=== PATIENT | female | born 1975 | race Hispanic/Latino ===

== ENCOUNTER 2018-05-21 16:53 | Inpatient (IN) | payer BC, OTHER ==
[~2018-05-21] VITALS: Ht 157.5 cm; Wt 95.1 kg
[2018-05-21 17:21] LABS: APPEARANCE,URINE Cloudy (CLEAR); BILIRUBIN,URINE Negative (NEGATIVE); COLOR,URINE Yellow (YELLOW); GLUCOSE, URINE (UA) Negative (NEGATIVE); KETONES,URINE Negative (NEGATIVE); LEUKOCYTE ESTERASE ,URINE Trace (NEGATIVE); NITRATE,URINE Negative (NEGATIVE); OCCULT BLOOD,URINE Large (NEGATIVE); PH,URINE 6.5 (5.0-8.0); PROTEIN,URINE Trace (NEGATIVE)
[2018-05-21] MEDS ORDERED: LACTATED RINGERS 1000ML 2,000 ML IV ONE (17:29)
[2018-05-21 17:30] LABS: HCG,QUAL RESULT NEGATIVE (NEGATIVE)
[2018-05-21 17:41] LABS: RBC,URINE >100 /HPF (0-1)
[2018-05-21 17:42] LABS: BACTERIA,URINE Few /HPF (None Seen); YEAST,URINE BUDDING Rare /HPF (None Seen)
[2018-05-21] MEDS ORDERED: ONDANSETRON HCL 4 MG/2 ML VIAL ONE (17:44)
[2018-05-21] MEDS ORDERED: MORPHINE SULFATE 4 MG/1ML SYG ONE (17:44)
[2018-05-21 17:45] LABS: BASOPHILS % (AUTO) 0.3 % (0.0-5.0); EOSINOPHILS % (AUTO) 0.7 % (0.0-8.0); HEMATOCRIT 36.8 % (36-48); LYMPHOCYTES % (AUTO) 12.9 % (21.0-51.0); MEAN CORPUSCULAR HEMOGLOBIN 25.2 pg (27.0-33.0); MEAN CORPUSCULAR HGB CONC 32.8 g/dL (32.0-36.0); MEAN CORPUSCULAR VOLUME 76.9 fL (79-99); MONOCYTES % (AUTO) 4.8 % (3.0-13.0); NEUTROPHILS % (AUTO) 81.3 % (40.0-77.0); PLATELET COUNT (AUTO) 257 K/uL (130-400); RED BLOOD CELL COUNT(AUTO) 4.78 MIL/uL (4.00-5.50); WHITE BLOOD COUNT (AUTO) 11.3 K/uL (4.8-10.8)
[2018-05-21 17:52] LABS: CREATININE 0.9 mg/dL (0.5-1.5); POTASSIUM 3.8 mmol/L (3.5-5.1)
[2018-05-21] MEDS ORDERED: KETOROLAC TROMETHAMINE 30MG/ML ONE (17:52)
[2018-05-21 17:56] LABS: ALBUMIN 3.5 g/dL (3.5-5.0); BILIRUBIN,TOTAL 0.2 mg/dL (0.2-1.0); TOTAL PROTEIN, SERUM 7.6 g/dL (6.0-8.3)
[2018-05-21 20:55] VITALS: BP 136/58
[2018-05-21] MEDS ORDERED: CETI10CA5 PO (21:56)
[2018-05-21] MEDS: SODIUM CHLORIDE 0.9% 1000ML 1,000 ML IV SCH (23:41)
[2018-05-21 23:52] VITALS: BP 114/63
[2018-05-22] MEDS: KETOROLAC TROMETHAMINE 30MG/ML IV PRN ×3 (01:57→21:53)
[2018-05-22 03:50] VITALS: BP 130/70
[2018-05-22] MEDS ORDERED: LEVOFLOXACIN 500 MG/D5W 100 ML 100 ML IV SCH (07:15)
[2018-05-22 07:53] VITALS: BP 123/61
[2018-05-22] MEDS: LEVOFLOXACIN 500 MG/D5W 100 ML 100 ML IV SCH (08:51)
[2018-05-22] MEDS: SODIUM CHLORIDE 0.9% 1000ML 1,000 ML IV SCH ×3 (08:51→20:20)
[2018-05-22] MEDS: FAMOTIDINE/PF 20 MG/2 ML VIAL IV SCH ×2 (08:53→20:20)
[2018-05-22 11:51] VITALS: BP 125/67
[2018-05-22] MEDS: MORPHINE SULFATE 2 MG/ML 1ML SYG IV PRN (13:08)
[2018-05-22] MEDS: TAMSULOSIN HCL 0.4 MG CAP.ER.24H PO SCH (15:59)
[2018-05-22 16:03] VITALS: BP 139/72
[2018-05-22 19:22] VITALS: BP 134/59
[2018-05-23] VITALS (18 sets, daily range): BP systolic 116–150; BP diastolic 54–85
[2018-05-23] MEDS: MORPHINE SULFATE 2 MG/ML 1ML SYG IV PRN
[2018-05-23] MEDS: SODIUM CHLORIDE 0.9% 1000ML 1,000 ML IV SCH ×2 (05:59→18:34)
[2018-05-23] MEDS: LEVOFLOXACIN 500 MG/D5W 100 ML 100 ML IV SCH (07:53)
[2018-05-23] MEDS: FAMOTIDINE/PF 20 MG/2 ML VIAL IV SCH ×2 (07:53→21:15)
[2018-05-23] MEDS: TAMSULOSIN HCL 0.4 MG CAP.ER.24H PO SCH (07:53)
[2018-05-23] MEDS: KETOROLAC TROMETHAMINE 30MG/ML IV PRN ×3 (07:55→21:16)
[2018-05-23] MEDS ORDERED: MORPHINE SULFATE 2 MG/ML 1ML SYG IV PRN (08:45)
[2018-05-23] MEDS ORDERED: IOHEXOL-350 50ML VIAL IV ONE (21:50)
[2018-05-23] MEDS ORDERED: DEXAMETHASONE SOD PHOSPHATE 10MG/ML 1ML VIAL ONE (22:00)
[2018-05-23] MEDS ORDERED: ONDANSETRON HCL 4 MG/2 ML VIAL ONE (22:00)
[2018-05-23] MEDS ORDERED: LIDOCAINE PF 2% 5ML ABBOJECT ONE (22:00)
[2018-05-23] MEDS ORDERED: MIDAZOLAM HCL 1 MG/ML 2ML VIAL ONE (22:01)
[2018-05-23] MEDS ORDERED: FENTANYL CITRATE PF 50 MCG/1 ML 2ML VIAL ONE (22:01)
[2018-05-23] MEDS ORDERED: PROPOFOL 10 MG/ML 20ML VIAL IV ONE (22:01)
[2018-05-23] MEDS ORDERED: NEOSTIGMINE 5MG/5ML SYR IV ONE (22:01)
[2018-05-23] MEDS ORDERED: ROCURONIUM 10MG/1ML SYR 10 MG/ML ML ONE (22:01)
[2018-05-23] MEDS ORDERED: GLYCOPYRROLATE 1 MG/5 ML SYRINGE ONE (22:54)
[2018-05-23] MEDS ORDERED: OPIUM/BELLADONNA ALKALOIDS 1 EACH SUPP.RECT RC ONE (22:55)
[2018-05-24] VITALS (15 sets, daily range): BP systolic 89–137; BP diastolic 57–91
[2018-05-24] MEDS: OPIUM/BELLADONNA ALKALOIDS 1 EACH SUPP.RECT RC SCH ×2 (01:30→07:25)
[2018-05-24] MEDS: PHENAZOPYRIDINE HCL 200 MG TABLET PO SCH ×2 (02:21→07:25)
[2018-05-24] MEDS ORDERED: OXYBUTYNIN CHLORIDE 5 MG TABLET PO SCH (09:00)
[2018-05-24] MEDS: LEVOFLOXACIN 500 MG/D5W 100 ML 100 ML IV SCH (11:10)
[2018-05-24] MEDS: TAMSULOSIN HCL 0.4 MG CAP.ER.24H PO SCH (11:11)
[2018-05-24] MEDS: FAMOTIDINE/PF 20 MG/2 ML VIAL IV SCH (11:11)
[2018-05-24] MEDS: SODIUM CHLORIDE 0.9% 1000ML 1,000 ML IV SCH (11:18)
[2018-05-24] MEDS: KETOROLAC TROMETHAMINE 30MG/ML IV PRN ×2 (11:18→17:47)
[2018-05-24] MEDS ORDERED: LEVO500T2 PO (13:16)
== END 2018-05-24 19:30 | disposition home or self-care (01) | DRG 694 ==
LOC: EDH 16:53 → EDHIP 19:27 → 3BH 20:09
PROVIDERS: ADMIT Hospitalist; ATTEND Hospitalist
PROC: 0T768DZ Dilation of Right Ureter with Intraluminal Device, Via Natural or Artificial Opening Endoscopic (ICD-10-PCS; principal; 2018-05-21)
PROC: BT1D1ZZ Fluoroscopy of Right Kidney, Ureter and Bladder using Low Osmolar Contrast (ICD-10-PCS; 2018-05-21)
PROC: 3E0234Z Introduction of Serum, Toxoid and Vaccine into Muscle, Percutaneous Approach (ICD-10-PCS; 2018-05-21)
DX: N13.2 Hydronephrosis with renal and ureteral calculous obstruction (principal); N39.0 Urinary tract infection, site not specified; Z68.38 Body mass index [BMI] 38.0-38.9, adult; E66.01 Morbid (severe) obesity due to excess calories; Z23 Encounter for immunization; Z80.3 Family history of malignant neoplasm of breast; Z83.3 Family history of diabetes mellitus; Z82.5 Family history of asthma and other chronic lower respiratory diseases
CPT/HCPCS: 36415; 51610; 74176; 80053; 81001; 81025; 83690; 85025; 87088; A4344; A4354; C1758; C1769; C2617; J1100; J1885; J1956; J2001; J2250; J2270; J2405; J2704; J2710; J3010; J3490; J7030; J7120; Q2038; Q9967

== ENCOUNTER 2018-06-09 08:00 | Day surgery (SDC) | payer OTHER ==
[2018-06-07 16:32] VITALS: BP 134/57
[2018-06-07 17:04] LABS: BASOPHILS % (AUTO) 0.4 % (0.0-5.0); EOSINOPHILS % (AUTO) 3.1 % (0.0-8.0); HEMATOCRIT 36.9 % (36-48); MEAN CORPUSCULAR HEMOGLOBIN 25.2 pg (27.0-33.0); MEAN CORPUSCULAR HGB CONC 32.4 g/dL (32.0-36.0); MEAN CORPUSCULAR VOLUME 77.7 fL (79-99); MONOCYTES % (AUTO) 6.3 % (3.0-13.0); NEUTROPHILS % (AUTO) 60.2 % (40.0-77.0); PLATELET COUNT (AUTO) 248 K/uL (130-400); RED BLOOD CELL COUNT(AUTO) 4.75 MIL/uL (4.00-5.50); RED CELL DISTRIBUTION WIDTH 14.6 % (11.0-15.5); WHITE BLOOD COUNT (AUTO) 9.8 K/uL (4.8-10.8)
[2018-06-09] VITALS (19 sets, daily range): BP systolic 114–139; BP diastolic 55–70
[~2018-06-09] VITALS: Ht 157.5 cm; Wt 92.7 kg
[~2018-06-09 08:00] MED LIST: SOLI5 PO
[2018-06-09] MEDS ORDERED: LACTATED RINGERS 1000ML 1,000 ML IV ONE (08:52)
[2018-06-09] MEDS: CEFTRIAXONE SODIUM 1 GM ONE ×2 (09:20→11:55)
[2018-06-09] MEDS ORDERED: LIDOCAINE PF 2% 5ML ABBOJECT ONE (10:45)
[2018-06-09] MEDS ORDERED: ONDANSETRON HCL 4 MG/2 ML VIAL ONE (10:46)
[2018-06-09] MEDS ORDERED: PROPOFOL 10 MG/ML 20ML VIAL IV ONE (10:46)
[2018-06-09] MEDS ORDERED: EPHEDRINE SULFATE 50 MG/ML AMPULE ONE (12:13)
[2018-06-09] MEDS ORDERED: PHENAZOPYRIDINE HCL 200 MG TABLET ONE (14:23)
== END 2018-06-09 15:28 | disposition home or self-care (01) ==
LOC: DAH 08:00
PROVIDERS: ATTEND Urology
DX: N20.0 Calculus of kidney (principal); Z98.51 Tubal ligation status; Z98.890 Other specified postprocedural states; Z79.899 Other long term (current) drug therapy
CPT/HCPCS: 36415; 50590; 52310; 85025; A4218; A4358; A4510; A4600; J0696; J2001; J2405; J2704; J3490; J7120

== ENCOUNTER → 2018-08-09 | Outpatient (CLI) | payer OTHER | END | disposition home or self-care (01) | LOC: RAH 16:13 | PROVIDERS: ATTEND Urology | DX: N20.0 Calculus of kidney (principal); Z72.89 Other problems related to lifestyle | CPT/HCPCS: 74018 ==

== ENCOUNTER → 2023-06-25 | Outpatient (CLI) | payer BC | END | disposition home or self-care (01) | LOC: RAH 09:45 | PROVIDERS: ATTEND Internal Medicine | DX: Z12.31 Encounter for screening mammogram for malignant neoplasm of breast (principal) | CPT/HCPCS: 77067 ==

== ENCOUNTER 2023-12-25 12:33 | Emergency (ER) | payer BC ==
[~2023-12-25] VITALS: Ht 157.5 cm; Wt 95.3 kg
[2023-12-25 12:34] VITALS: BP 154/91; PULSE 101; RESP 16
[2023-12-25] MEDS: IBUPROFEN 800 MG TAB PO ONE (12:51)
[2023-12-25 13:10] LABS: HEMATOCRIT 38.9 % (36-48); MEAN CORPUSCULAR HEMOGLOBIN 27.6 pg (27.0-33.0); MEAN CORPUSCULAR HGB CONC 33.9 g/dL (32.0-36.0); MEAN CORPUSCULAR VOLUME 81.2 fL (79-99); RED BLOOD CELL COUNT(AUTO) 4.79 MIL/uL (4.00-5.50); RED CELL DISTRIBUTION WIDTH 12.6 % (11.0-15.5); WHITE BLOOD COUNT (AUTO) 8.3 K/uL (4.8-10.8)
[2023-12-25 13:18] LABS: INR <= 0.93 (0.85-1.15)
[2023-12-25 13:20] LABS: PARTIAL THROMBOPLASTIN TIME 25.9 SEC (26.3-35.5)
[2023-12-25 13:23] LABS: ALBUMIN 3.5 g/dL (3.5-5.0); BILIRUBIN,TOTAL 0.2 mg/dL (0.2-1.0); CREATININE 0.6 mg/dL (0.5-1.0); POTASSIUM 3.8 mmol/L (3.5-5.1); TOTAL PROTEIN, SERUM 7.8 g/dL (6.0-8.3)
== END 2023-12-25 14:58 | disposition home or self-care (01) ==
LOC: EDH 12:33
DX: N92.4 Excessive bleeding in the premenopausal period (principal); Z90.49 Acquired absence of other specified parts of digestive tract; Z98.51 Tubal ligation status
CPT/HCPCS: 36415; 76857; 80053; 85027; 85610; 85730; 86850; 86900; 86901